=== PATIENT | female | born 1935 | race Caucasian/White ===

== ENCOUNTER 2017-02-16 08:15 | Emergency (ER) | payer MEDICARE ==
[~2017-02-16 08:15] MED LIST: ALEN70TA3 PO; AMLO10TA2 PO; ASCO100020 PO; ASPI325T8 PO; CALC-112 PO; CARV6.25 PO; CYAN1TAB2 PO; DORZ10DR21 EACHEYE; DORZ10DR21 OP; FLAX1CAP PO; FLUT16SP2 NS; FLUT1DIS3 IH; FLUT50DI IH; FOLI0.4T2 PO; ISOS60TA PO; LUTE40CA PO; METH-37 PO; MILK500C PO; OMEG1CAP16 PO; SULF1TAB24 PO; TAFL1DRO OP; TRAM50TA PO; VITA150T PO
[2017-02-16 08:25] VITALS: BP 94/50
--- NOTE | 2017-02-16 08:43 | EKG ---
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
[2017-02-16 08:47] LABS: BASO % 1 % (0-3); EOS # 0.1 x10^3/uL (0.0-0.7); EOS % 3 % (0-3); HEMATOCRIT 37.3 % (36.0-47.0); HEMOGLOBIN 12.6 g/dL (12.0-15.5); LYMPH # 1.4 x10^3/uL (1.0-4.8); LYMPH % 27 % (24-48); MEAN CORPUSCULAR HEMOGLOBIN 28 pg (25-35); MEAN CORPUSCULAR HGB CONC 34 g/dL (31-37); MEAN CORPUSCULAR VOLUME 84 fL (79-100); MONO # 0.7 x10^3/uL (0.0-1.1); MONO % 14 % (0-9); NEUT # 2.9 x10^3uL (1.8-7.7); NEUT % 56 % (31-73); PLATELET COUNT 243 x10^3/uL (140-400); RED BLOOD COUNT 4.45 x10^6/uL (3.50-5.40); RED CELL DISTRIBUTION WIDTH 14.2 % (11.5-14.5); WHITE BLOOD COUNT 5.2 x10^3/uL (4.0-11.0)
[2017-02-16 08:56] LABS: CALCIUM 9.2 mg/dL (8.5-10.1); CREATININE 0.6 mg/dL (0.6-1.0); GFR 95.5; POTASSIUM 4.4 mmol/L (3.5-5.1)
[2017-02-16] MEDS ORDERED: IV NORMAL SALINE 1,000ML 1,000 ML IV SCH (09:00)
[2017-02-16 09:35] LABS: BILIRUBIN,URINE NEG (NEG); CLARITY,URINE HAZY; COLOR,URINE YELLOW; GLUCOSE,URINE NEG (NEG); NITRITE,URINE NEG (NEG); UROBILINOGEN,URINE 0.2 mg/dL (0.2 mg/dL)
[2017-02-16 09:36] LABS: AMORPHOUS SEDIMENT,UR PRESENT /HPF; BACTERIA,URINE 0 /HPF (0-FEW); RBC,URINE RARE /HPF (0-2); SQUAMOUS EPITHELIAL CELL,UR OCC /LPF; WBC,URINE RARE /HPF (0-4)
--- NOTE | 2017-02-16 09:43 | PHYS DOC ---
Past History Past Medical History: COPD, Hypertension, Other Past Surgical History: Appendectomy, Hysterectomy Smoking: Cigarettes, Quit Greater Than 1 Year Alcohol Use: None Drug Use: None Adult General Chief Complaint Chief Complaint: DIZZY/LIGHT HEADED HPI HPI Patient is a 82 year old F who presents with dizziness. Over the past 2 days Serena has noticed worsening dizziness with no exacerbating or alleviating factors. She describes the dizziness occasionally has vertigo, room spinning. She also feels that she has had worsening nasal congestion with postnasal drip over the past 5 days. 3 days ago she did have several episodes of loose stools. She also has been working in the heat over the past few days doing yard work at her house. She has no other associated symptoms. She is breathing well and has no abdominal pain stooling normally at this time urinating normally. She has had no changes in medications and is taking all of her current medications as directed. Review of Systems Review of Systems Constitutional: Denies fever or chills [] Eyes: Denies change in visual acuity, redness, or eye pain [] HENT: Negative except history of present illness Respiratory: Denies cough or shortness of breath [] Cardiovascular: No additional information not addressed in HPI [] GI: Negative except history of present illness : Denies dysuria or hematuria [] Musculoskeletal: Denies back pain or joint pain [] Integument: Denies rash or skin lesions [] Neurologic: Denies headache, focal weakness or sensory changes [] Endocrine: Denies polyuria or polydipsia [] Family History Family History Noncontributory Current Medications Current Medications Current Medications Medications (Trade) Dose Ordered Sig/Carolann Start Time Stop Time Status Last Admin Dose Admin Sodium Chloride 1,000 ml @ 1,000 mls/hr Q1H 02/16/17 09:00 02/16/17 09:59 02/16/17 09:10 1,000 MLS/HR Allergies Allergies Coded Allergies Type Severity Reaction Last Updated Verified ciprofloxacin Allergy Intermediate Unknown 08/05/15 Yes hydrochlorothiazide Allergy Intermediate Unknown 08/05/15 Yes lisinopril Allergy Intermediate Unknown 08/05/15 Yes olmesartan Allergy Intermediate 08/05/15 Yes spironolactone Allergy Intermediate Unknown 12/24/13 Yes Physical Exam Physical Exam Constitutional: Well developed, well nourished, no acute distress, non-toxic appearance. [] HENT: Normocephalic, atraumatic, bilateral external ears normal, no oral exudates, bilateral nasal erythema with mild swelling. Dry mucous membranes Eyes: PERRLA, EOMI, conjunctiva normal, no discharge. [] Neck: Normal range of motion, no tenderness, supple, no stridor. [] Cardiovascular:Heart rate regular rhythm, Lungs & Thorax: Bilateral breath sounds clear to auscultation [] Abdomen: Bowel sounds normal, soft, no tenderness, no masses, no pulsatile masses. [] Skin: Warm, dry, no erythema, no rash. [] Back: No tenderness, no CVA tenderness. [] Extremities: No tenderness, no cyanosis, no clubbing, ROM intact, no edema. [] Neurologic: Alert and oriented X 3, normal motor function, normal sensory function, no focal deficits noted. [] Psychologic: Affect normal, judgement normal, mood normal. [] Current Patient Data Vital Signs Vital Signs Date Time Temp Pulse Resp B/P (MAP) Pulse Ox O2 Delivery O2 Flow Rate FiO2 02/16/17 08:25 98.3 69 16 95 Room Air Lab Results Laboratory Tests Test 02/16/17 08:35 White Blood Count 5.2 x10^3/uL (4.0-11.0) Red Blood Count 4.45 x10^6/uL (3.50-5.40) Hemoglobin 12.6 g/dL (12.0-15.5) Hematocrit 37.3 % (36.0-47.0) Mean Corpuscular Volume 84 fL (79-100) Mean Corpuscular Hemoglobin 28 pg (25-35) Mean Corpuscular Hemoglobin Concent 34 g/dL (31-37) Red Cell Distribution Width 14.2 % (11.5-14.5) Platelet Count 243 x10^3/uL (140-400) Neutrophils (%) (Auto) 56 % (31-73) Lymphocytes (%) (Auto) 27 % (24-48) Monocytes (%) (Auto) 14 % (0-9) H Eosinophils (%) (Auto) 3 % (0-3) Basophils (%) (Auto) 1 % (0-3) Neutrophils # (Auto) 2.9 x10^3uL (1.8-7.7) Lymphocytes # (Auto) 1.4 x10^3/uL (1.0-4.8) Monocytes # (Auto) 0.7 x10^3/uL (0.0-1.1) Eosinophils # (Auto) 0.1 x10^3/uL (0.0-0.7) Basophils # (Auto) 0.0 x10^3/uL (0.0-0.2) Sodium Level 128 mmol/L (136-145) L Potassium Level 4.4 mmol/L (3.5-5.1) Chloride Level 94 mmol/L (98-107) L Carbon Dioxide Level 27 mmol/L (21-32) Anion Gap 7 (6-14) Blood Urea Nitrogen 14 mg/dL (7-20) Creatinine 0.6 mg/dL (0.6-1.0) Estimated GFR (Cockcroft-Gault) 95.5 Glucose Level 99 mg/dL (70-99) Calcium Level 9.2 mg/dL (8.5-10.1) EKG EKG Interpreted by emergency department physician Rhythm: NS Rate: 60 Ectopy: none Clinical Impression: [EKG CLINICAL IMPRESSION:][] Course & Med Decision Making Course & Med Decision Making Pertinent Labs and Imaging studies reviewed. (See chart for details) Admission was recommended for hyponatremia however patient wished to be managed at home. The cause of hyponatremia was presumptively hypovolemic hyponatremia 2 recent diarrhea and working outside in the heat. However her urine specific gravity does not show dehydration. This was discussed with the patient as well as the uncertainty of her volume status. It was explained that monitoring in the hospital would allow for dynamic treatment of her hyponatremia. Shifts and sodium may result in permanent brain damage. Serena's daughter was present during her evaluation Dragon Disclaimer Dragon Disclaimer This chart was dictated in whole or in part using Voice Recognition software in a busy, high-work load, and often noisy Emergency Department environment. It may contain unintended and wholly unrecognized errors or omissions. Departure Departure: Impression: Primary Impression: Dehydration Additional Impressions: Hyponatremia Upper respiratory infection, viral Disposition: 01 HOME, SELF-CARE Condition: GUARDED Referrals: KEVEN MALONE MD (PCP) Patient Instructions: Hyponatremia, Upper Respiratory Infection, Adult Additional Instructions: Serena was seen in the ED for not feeling well. No emergency medical condition was found during the history and physical exam. Her symptoms were consistent with an upper respiratory infection. She advised to use her nasal steroids and to start using nasal saline rinses. She was also found to have low sodium likely secondary to dehydration for which she was given 1 L of IV fluids. She was strongly advised to return to the ED if she develops new or worsening symptoms. She was advised to follow up with her primary care doctor in the next 3-5days for further evaluation Problem Qualifiers ADAL MONTIEL MD Feb 16, 2017 09:43
== END 2017-02-16 10:27 | disposition home or self-care (01) ==
LOC: ER 08:15
DX: E86.0 Dehydration (principal); E87.1 Hypo-osmolality and hyponatremia; J06.9 Acute upper respiratory infection, unspecified; I10 Essential (primary) hypertension; J44.9 Chronic obstructive pulmonary disease, unspecified; F17.210 Nicotine dependence, cigarettes, uncomplicated; Z88.1 Allergy status to other antibiotic agents; Z88.8 Allergy status to other drugs, medicaments and biological substances
CPT/HCPCS: 36415; 80048; 81001; 85027; 93005; 96360; 99285-25; J7030

== ENCOUNTER → 2017-03-21 | Outpatient (CLI) | payer OTHER ==
--- NOTE | 2017-03-21 11:30 | CARD ---
APPROVED REPORT EXAM: Two-dimensional and M-mode echocardiogram with Doppler and color Doppler. Other Information Quality : GoodHR: 64bpm Rhythm : NSR INDICATION Dizziness and Vertigo Hypertension/HCVD 2D DIMENSIONS RVDd3.0 (2.9-3.5cm)Left Atrium(2D)3.4 (1.6-4.0cm) IVSd0.8 (0.7-1.1cm)Aortic Root(2D)2.7 (2.0-3.7cm) LVDd4.6 (3.9-5.9cm)LVOT Diameter2.1 (1.8-2.4cm) PWd0.8 (0.7-1.1cm)LVDs3.0 (2.5-4.0cm) FS (%) 35.2 %SV62.9 ml LVEF(%)64.6 (>50%) Aortic Valve AoV Peak Goldy.167.8cm/sAoV VTI39.8cm AO Peak GR.11.3mmHgLVOT Peak Goldy.85.1cm/s LVOT VTI 20.57cmAO Mean GR.6mmHg TOBI (VMAX)1.37kz0SJD (VTI)1.80cm2 AI P 1/2 Tozg901xd Mitral Valve MV E Vxynujpg948.5cm/sMV E Peak Gr.3mmHg MV DECEL AOVM262sgCV A Nawrfglh66.6cm/s MV E Mean Gr.1mmHgE/A Ratio2.1 MV A Qwpljvgj934gx Pulmonary Valve PV Peak Uevtyggs509.3cm/sPV Peak Grad.4mmHg Tricuspid Valve TR P. Fcbdqdcz884yg/sTR Peak Gr.33mmHg Pulmonary Vein S1 Wczkucux01.2cm/sD2 Ecowxyrj41.5cm/s LEFT VENTRICLE The left ventricle is normal size. There is normal left ventricular wall thickness. The left ventricu lar systolic function is normal. The Ejection Fraction is 60-65%. There is normal LV segmental wall m otion. Transmitral Doppler flow pattern is Grade III-reversible restrictive diastolic dysfunction. RIGHT VENTRICLE The right ventricle is normal size. There is normal right ventricular wall thickness. The right ventr icular systolic function is normal. ATRIA The left atrium is moderately dilated. The right atrium is moderately dilated. The atrial septum is a neurysmal without Doppler evidence for an atrial septal defect. AORTIC VALVE The aortic valve is mildly sclerotic. The aortic valve is trileaflet. Doppler and Color Flow revealed mild aortic regurgitation. There is no significant aortic valvular stenosis. MITRAL VALVE The mitral valve leaflets are mildly calcified. There is no evidence of mitral valve prolapse. There is no mitral valve stenosis. Doppler and Color Flow revealed mild mitral regurgitation. TRICUSPID VALVE Doppler and Color Flow revealed mild tricuspid regurgitation. The pulmonary artery systolic pressure is estimated at 36 mmHg. There is mild pulmonary hypertension. PULMONIC VALVE The pulmonic valve is not well visualized but appears to open adequately. Doppler and Color Flow reve aled mild pulmonic valvular regurgitation. There is no pulmonic valvular stenosis by spectral Doppler . GREAT VESSELS The aortic root is normal in size. The ascending aorta is normal in size. The pulmonary artery is nor mal. The IVC is normal in size and collapses >50% with inspiration. PERICARDIAL EFFUSION There is no evidence of significant pericardial effusion. Critical Notification Critical Value: No <Conclusion> The left ventricular systolic function is normal. The Ejection Fraction is 60-65%. Mild aortic regurgitation. Mild mitral regurgitation. Mild tricuspid regurgitation. The pulmonary artery systolic pressure is estimated at 36 mmHg. There is mild pulmonary hypertension. There is no evidence of significant pericardial effusion.
--- NOTE | 2017-03-21 12:08 | RAD ---
CT head without IV contrast Indication: Dizziness Technique: CT head without IV contrast Comparison: Previous CT head from 04/20/2015. Findings: No pathologic extra-axial or intra-axial fluid collection. Mild diffuse cerebral and cerebral atrophy with axillary brachial dilation of the ventricles. No acute intracranial bleed. The basal cisterns are within normal limits. The paranasal sinuses and mastoid air cells are clear. No suspicious calvarial lesion. Bilateral cavernous carotid artery calcifications. Impression: 1. No acute intracranial bleed. 2. Diffuse cerebral atrophy likely age-related. If concern for acute ischemic stroke is high, please consider MRI brain which is a more sensitive modality. PQRS Compliance Statement: One or more of the following individualized dose reduction techniques were utilized for this examination: 1. Automated exposure control 2. Adjustment of the mA and/or kV according to patient size 3. Use of iterative reconstruction technique MTDD
== END | disposition home or self-care (01) ==
LOC: ECHO 09:23
PROVIDERS: ATTEND Family Medicine
DX: I10 Essential (primary) hypertension (principal); G31.9 Degenerative disease of nervous system, unspecified
CPT/HCPCS: 70450; 93306

== ENCOUNTER 2017-05-01 20:23 | Emergency (ER) | payer OTHER ==
[~2017-05-01] VITALS: Ht 160 cm; Wt 52.2 kg
[2017-05-01 20:37] VITALS: BP 157/66
--- NOTE | 2017-05-01 20:37 | PHYS DOC ---
Past History Past Medical History: COPD, Hypertension, Other Past Surgical History: Appendectomy, Hysterectomy Smoking: Cigarettes, Quit Greater Than 1 Year Alcohol Use: None Drug Use: None Adult General Chief Complaint Chief Complaint: right toe pain HPI HPI Patient is a 82 year old female who presents with she states that there is a crack at the base of her toenail on right. She denies any falls, any other injuries. She states she is up-to-date on her tetanus shot. Review of Systems Review of Systems Constitutional: Denies fever or chills [] Eyes: Denies change in visual acuity, redness, or eye pain [] HENT: Denies nasal congestion or sore throat [] Respiratory: Denies cough or shortness of breath [] Cardiovascular: No additional information not addressed in HPI [] GI: Denies abdominal pain, nausea, vomiting, bloody stools or diarrhea [] : Denies dysuria or hematuria [] Musculoskeletal: Denies back pain or joint pain [] Integument: Denies rash or skin lesions [] Neurologic: Denies headache, focal weakness or sensory changes [] Endocrine: Denies polyuria or polydipsia [] Allergies Allergies Allergies Coded Allergies Type Severity Reaction Last Updated Verified ciprofloxacin Allergy Intermediate Unknown 08/05/15 Yes hydrochlorothiazide Allergy Intermediate Unknown 08/05/15 Yes lisinopril Allergy Intermediate Unknown 08/05/15 Yes olmesartan Allergy Intermediate 08/05/15 Yes spironolactone Allergy Intermediate Unknown 12/24/13 Yes Physical Exam Physical Exam Constitutional: Well developed, well nourished, no acute distress, non-toxic appearance. [] HENT: Normocephalic, atraumatic, bilateral external ears normal, oropharynx moist, no oral exudates, nose normal. [] Eyes: PERRLA, EOMI, conjunctiva normal, no discharge. [] Neck: Normal range of motion, no tenderness, supple, no stridor. [] Cardiovascular:Heart rate regular rhythm, no murmur [] Lungs & Thorax: Bilateral breath sounds clear to auscultation [] Abdomen: Bowel sounds normal, soft, no tenderness, no masses, no pulsatile masses. [] Skin: Warm, dry, no erythema, no rash. [] Back: No tenderness, no CVA tenderness. [] Extremities: Tender to the patient with ecchymosis at the PIP joint of the right great toe, no obvious deformity noted, no cyanosis, no clubbing, ROM intact, no edema. [] Neurologic: Alert and oriented X 3, normal motor function, normal sensory function, no focal deficits noted. [] Psychologic: Affect normal, judgement normal, mood normal. [] EKG EKG [] Radiology/Procedures Radiology/Procedures 3 views of the right toe shows slightly displaced proximal distal great toe fracture, no foreign bodies or other abnormalities noted, as interpreted by me. Impressions: Right great toe fracture Course & Med Decision Making Course & Med Decision Making Pertinent Labs and Imaging studies reviewed. (See chart for details) Patient was given [place] for pain in her toes were danita taped together. She is to follow-up with Mina. Return precautions given. Her and her daughters agreeable to plan. She's being discharged with hard sole shoe and crutches. She is to weight-bear as tolerated. Dragon Disclaimer Dragon Disclaimer This chart was dictated in whole or in part using Voice Recognition software in a busy, high-work load, and often noisy Emergency Department environment. It may contain unintended and wholly unrecognized errors or omissions. Departure Departure: Impression: Primary Impression: Toe fracture Disposition: 01 HOME, SELF-CARE Condition: STABLE Referrals: KEVEN MALONE MD (PCP) Patient Instructions: Danita Taping of Toes Additional Instructions: Your broke your big toe on your right foot. We danita taped your big toe to the other toe. You will need to wear your hard soled shoe and follow-up with Dr. Enriquez. You can take [place], which is a narcotic pain medicine as needed for pain. Be careful with this as it can make you constipated and impair your judgment. Please don't drive your car or drink alcohol while taking this medicine. You can use MiraLAX, which you can purchase [id number] for a stool softener to help prevent constipation from your narcotic pain medicine called [place]. Return ER for severe pain or other concerns. Scripts Hydrocodone Bit/Acetaminophen (NORCO 5-325 TABLET) 1 Each Tablet 1 TAB PO PRN Q6HRS Y for PAIN, #20 TAB 0 Refills Prov: MERRY SEO MD 05/01/17 Problem Qualifiers Primary Impression: Toe fracture Encounter type: initial encounter Toe: great toe Fracture type: closed Phalanx: distal Fracture alignment: nondisplaced Laterality: right Qualified Codes: S92.424A - Nondisplaced fracture of distal phalanx of right great toe, initial encounter for closed fracture MERRY SEO MD May 01, 2017 20:37
[2017-05-01] MEDS ORDERED: HYDROcodone/APAP 5/325MG 1 TAB TABLET PO ONE (22:00)
[2017-05-01] MEDS ORDERED: HYDR-971 PO (22:10)
--- NOTE | 2017-05-02 08:37 | RAD ---
Toe x-rays Indication:, To the first digit. Severe pain. Swelling and redness. Technique: 3 views of the first toe Comparison: None Findings: Avulsion fracture of the medial aspect of the base of the distal phalanx of the great toe noted with extension to the articular surface at the interphalangeal joint. Linear calcification along the lateral aspect of the head of the first metatarsal may represent enthesophyte or avulsion fracture. Impression: As above.
== END 2017-05-01 22:24 | disposition home or self-care (01) ==
LOC: ER 20:23
DX: S92.424A Nondisplaced fracture of distal phalanx of right great toe, initial encounter for closed fracture (principal); J44.9 Chronic obstructive pulmonary disease, unspecified; I10 Essential (primary) hypertension; F17.210 Nicotine dependence, cigarettes, uncomplicated; Z88.1 Allergy status to other antibiotic agents; Z88.8 Allergy status to other drugs, medicaments and biological substances; X58.XXXA Exposure to other specified factors, initial encounter; Y93.89 Activity, other specified; Y99.8 Other external cause status; Y92.89 Other specified places as the place of occurrence of the external cause
CPT/HCPCS: 73660; 99284

== ENCOUNTER → 2018-05-08 | Outpatient (CLI) | payer OTHER ==
[~2018-05-08] MED LIST changes: -AMLO10TA2 PO; +AMLO10TA6 PO; +HYDR-971 PO
--- NOTE | 2018-05-08 15:47 | RAD ---
Exam : Carotid Duplex with Grayscale Ultrasound and Spectral and Color Doppler Analysis 05/08/2018 3:42 PM Clinical Indications: No dizziness. Comparison study: None available. PQRS Compliance Statement - Stenosis calculations for CT, MR and conventional angiography are based upon measurement of the distal ICA diameter in accordance with the NASCET methodology. Stenosis calculations for carotid ultrasound studies are derived from validated velocity criteria which are known to correlate with the NASCET methodology. Findings: The common, internal and external carotid arteries were examined by grayscale, color and spectral Doppler ultrasound. Minimal changes of atherosclerotic vascular disease are seen without high-grade visual stenosis on color Doppler imaging. Vertebral flow is antegrade bilaterally. The following are the velocities and ratios in the carotid arteries on both sides: RIGHT ICA PV: 70cm/sec RIGHT CCA PV: 62cm/sec RIGHT ICA ED: 14cm/sec RIGHT IC/CCPV: Less than 2 RIGHT VERTEBRAL: antegrade flow LEFT ICA PV: 82cm/sec LEFT CCA PV: 72cm/sec LEFT ICA ED: 15cm/sec LEFT IC/CCPV: Less than 2 LEFT VERTEBRAL: antegrade flow <50% ICA Stenosis: PSV < 125cm/s (EDV < 40cm/s; SVR < 2.0) 50-69% ICA Stenosis: PSV < 125-229cm/s (EDV 40-99cm/s; SVR 2.0-3.9) >70% ICA Stenosis: PSV > 230cm/s (EDV >100cm/s; SVR >4.0) Impression: Minimal changes of atherosclerotic vascular disease with less than 50 percent stenosis of bilateral internal carotid arteries by ultrasound criterion Electronically signed by: Joaquín Preston MD (05/08/2018 3:45 PM) [id number]
== END | disposition home or self-care (01) ==
LOC: US 12:11
PROVIDERS: ATTEND Family Medicine
DX: I65.23 Occlusion and stenosis of bilateral carotid arteries (principal)
CPT/HCPCS: 93880

== ENCOUNTER 2018-09-17 11:54 | Emergency (ER) | payer OTHER ==
[~2018-09-17] VITALS: Ht 157.5 cm; Wt 52.6 kg
[~2018-09-17 11:54] MED LIST changes: -AMLO10TA6 PO; +AMLO10TA8 PO; +HYDR-3165 PO; -HYDR-971 PO
[2018-09-17 12:15] VITALS: BP 155/79
[2018-09-17] MEDS ORDERED: OXYMETAZOLINE 0.05% NASAL SPRAY 15ML BOTTLE. NS ONE (12:30)
--- NOTE | 2018-09-17 12:46 | PHYS DOC ---
Past History Past Medical History: No Pertinent History Past Surgical History: No Surgical History Smoking: Cigarettes, Quit Greater Than 1 Year Alcohol Use: None Drug Use: None Adult General Chief Complaint Chief Complaint: NOSEBLEED HPI HPI Patient is a 83 year old female who presents with complaining of nose bleeding. Patient complaining of intermittent episodes of nosebleeds for the last 12 days that stopped spontaneously. Patient states this morning she blew her nose and started to have bleeding from the left nares that stopped at arrival to ER. Patient denies ecchymosis on other bleeding, taking brought in her medication, dizziness and shortness of breath, fever and chills. Patient complaining of nasal congestion for the last several days. Review of Systems Review of Systems Constitutional: Denies fever or chills [] Eyes: Denies change in visual acuity, redness, or eye pain [] HENT: Denies nasal congestion or sore throat [] Respiratory: Denies cough or shortness of breath [] Cardiovascular: No additional information not addressed in HPI [] GI: Denies abdominal pain, nausea, vomiting, bloody stools or diarrhea [] : Denies dysuria or hematuria [] Musculoskeletal: Denies back pain or joint pain [] Integument: Denies rash or skin lesions [] Neurologic: Denies headache, focal weakness or sensory changes [] Endocrine: Denies polyuria or polydipsia [] All other systems were reviewed and found to be within normal limits, except as documented in this note. Current Medications Current Medications Current Medications Medications (Trade) Dose Ordered Sig/Carolann Start Time Stop Time Status Last Admin Dose Admin Oxymetazoline HCl (Afrin) 2 spray 1X ONCE 09/17/18 12:30 09/17/18 12:32 DC 09/17/18 12:31 2 SPRAY Allergies Allergies Allergies Coded Allergies Type Severity Reaction Last Updated Verified ciprofloxacin Allergy Intermediate Unknown 08/05/15 Yes hydrochlorothiazide Allergy Intermediate Unknown 08/05/15 Yes lisinopril Allergy Intermediate Unknown 08/05/15 Yes olmesartan Allergy Intermediate 08/05/15 Yes spironolactone Allergy Intermediate Unknown 12/24/13 Yes Physical Exam Physical Exam Constitutional: Well developed, well nourished, no acute distress, non-toxic appearance. [] HENT: Normocephalic, atraumatic, bilateral external ears normal, oropharynx moist, no oral exudates, dried blood in left naris without active bleeding edema and erythema of bilateral nasal mucosa] Eyes: PERRLA, EOMI, conjunctiva normal, no discharge. [] Neck: Normal range of motion, no tenderness, supple, no stridor. [] Cardiovascular:Heart rate regular rhythm, no murmur [] Lungs & Thorax: Bilateral breath sounds clear to auscultation [] Skin: Warm, dry, no erythema, no rash. [] Back: No tenderness, no CVA tenderness. [] Extremities: No tenderness, no cyanosis, no clubbing, ROM intact, no edema. [] Neurologic: Alert and oriented X 3, normal motor function, normal sensory function, no focal deficits noted. [] Psychologic: Affect normal, judgement normal, mood normal. [] Current Patient Data Vital Signs Vital Signs Date Time Temp Pulse Resp B/P (MAP) Pulse Ox O2 Delivery O2 Flow Rate FiO2 09/17/18 12:15 98.3 65 16 99 Room Air EKG EKG [] Radiology/Procedures Radiology/Procedures [] Course & Med Decision Making Course & Med Decision Making Evaluation of patient in ER showed 83-year-old male patient with episodes of nasal bleeding for several days. Patient was advised to avoid of blow her nose and apply focal pressure during episodes of epistaxis and use Afrin and normal saline spray. Patient instructed for with ENT if continues to have epistaxis. Dragon Disclaimer Dragon Disclaimer This electronic medical record was generated, in whole or in part, using a voice recognition dictation system. Departure Departure: Impression: Primary Impression: Epistaxis Disposition: HOME, SELF-CARE (at 1244) Condition: STABLE Referrals: KEVEN MALONE MD (PCP) Patient Instructions: Nose Drops, Saline, [id number], Nosebleed Additional Instructions: Follow-up with ENT on-call in 3-5 days Apply Afrin nasal spray every 6 hours for 3 days Use normal saline nose drops several times a day Avoid of blowing your nose Return to emergency room if not getting better AVA ABAD MD Sep 17, 2018 12:46
== END 2018-09-17 12:51 | disposition home or self-care (01) ==
LOC: ER 11:54
DX: R04.0 Epistaxis (principal); F17.210 Nicotine dependence, cigarettes, uncomplicated; Z88.1 Allergy status to other antibiotic agents; Z88.8 Allergy status to other drugs, medicaments and biological substances
CPT/HCPCS: 99282

== ENCOUNTER → 2018-12-18 | Outpatient (CLI) | payer OTHER ==
[~2018-12-18] MED LIST changes: +IOHEXOL 240 MG/ML 50ML VIAL. ONE
[2018-12-18] MEDS: IOHEXOL 300 MG/ML 75 ML VIAL. IV ONE (13:56)
[2018-12-18] MEDS: IOHEXOL 240 MG/ML 50ML VIAL. PO ONE (13:56)
--- NOTE | 2018-12-18 15:30 | RAD ---
CT ABD PELV W/ORAL IV CONTRAST Indication: Generalized abdominal pain for 3 months, weight loss Technique: Postcontrast CT imaging was performed of the abdomen pelvis, multiplanar reconstruction images submitted. Oral contrast was also given. One or more of the following individualized dose reduction techniques were utilized for this examination: 1. Automated exposure control 2. Adjustment of the mA and/or kV according to patient size 3. Use of iterative reconstruction technique. Comparison: August 05, 2015 Findings: There are several noncalcified nodules of the visualized lung bases at least in part present previously although difficult to accurately compare, the visualized nodules fairly similar in size. There is no pleural fluid. No focal abnormality is identified of the liver, pancreas, spleen. Both kidneys enhance, no hydronephrosis. There is gallstone. There is atherosclerotic calcification abdominal aorta, stenoses near origins of the celiac and superior mesenteric arteries likely significant although difficult to accurately quantify on this exam. There is hypodense lesion of superior left kidney about 1 cm in size, density measurements more suggestive of cyst about 19-20 Hounsfield units, size fairly similar. Bowel is not considered significantly dilated. There is sigmoid diverticulosis, difficult to exclude component of mild long segment sigmoid wall thickening. Sigmoid colon is not opacified with oral contrast during exam. There is circumferential prominence of urinary bladder bustos. There is suspected moderate to severe stenosis of the right common iliac artery origin. There is lumbar levoscoliosis. There is again severe L1 compression deformity with significant osseous retropulsion contributing to moderate to severe spinal stenosis with right greater than left lateral recess stenosis. There is also severe narrowing of the right L1-2 neural foramen. There is multilevel facet degenerative change. There is likely mild spinal stenosis at L2-3, degree of left lateral recess stenosis at L3-4 also the far lateral recesses bilaterally at L4-5. There is likely moderate narrowing of the left L4-5 neural foramen. IMPRESSION: 1. Somewhat difficult to accurately quantify, there are suspected stenoses near the celiac and superior mesenteric artery origins, also suspected moderate to severe stenosis near the right common iliac artery origin. 2. There is nonspecific circumferential prominence of urinary bladder bustos, could be seen with cystitis in the appropriate clinical setting, mass not excludable by imaging. 3. There is sigmoid diverticulosis, difficult to exclude mild pathologic wall thickening although findings may be due to incomplete distention. 4. There is cholelithiasis. 5. There are again some noncalcified pulmonary nodules at the visualized lung bases for which dedicated chest CT is recommended for complete evaluation visualized nodules fairly similar compared with 2016 exam. 6. There is again severe L1 compression deformity with significant osseous retropulsion contributing to spinal stenosis and narrowing of the right L1-2 neural foramen. Electronically signed by: Vasu Martin MD (12/18/2018 3:27 PM) [id number]
== END | disposition home or self-care (01) ==
LOC: CT 12:44
PROVIDERS: ATTEND Family Medicine
DX: K57.30 Diverticulosis of large intestine without perforation or abscess without bleeding (principal); K80.20 Calculus of gallbladder without cholecystitis without obstruction; R91.8 Other nonspecific abnormal finding of lung field; I70.0 Atherosclerosis of aorta; N28.89 Other specified disorders of kidney and ureter; M48.061 Spinal stenosis, lumbar region without neurogenic claudication; M43.8X6 Other specified deforming dorsopathies, lumbar region
CPT/HCPCS: 74177; Q9966; Q9967

== ENCOUNTER → 2019-01-01 | Outpatient (CLI) | payer OTHER ==
[~2019-01-01] MED LIST changes: -IOHEXOL 240 MG/ML 50ML VIAL. ONE
--- NOTE | 2019-01-01 15:37 | RAD ---
Examination: CT chest without contrast HISTORY: History of abnormal right loss COMPARISON: 07/19/2011 TECHNIQUE: Axial CT images of the chest were performed without contrast. Coronal and sagittal reformats are performed Exposure: One or more of the following individualized dose reduction techniques were utilized for this examination: 1. Automated exposure control 2. Adjustment of the mA and/or kV according to patient size 3. Use of iterative reconstruction technique FINDINGS: Central airways are patent. The ascending aorta measures 3.5 cm in transverse dimension. Mild cardiomegaly. Coronary artery calcifications identified. Severe aortic atherosclerosis. Multiple scattered noncalcified nodules identified in the bilateral lungs with the largest measuring 7 mm in the right upper lobe, 8 mm in the left lower lobe of the lung are stable since 2010. Faint tree-in-bud opacities identified in the periphery of the bilateral lungs again identified could be chronic infectious etiology. No evidence of pleural effusion or pneumothorax. The visualized noncontrasted liver, spleen, adrenals grossly appears unremarkable. Severe compression change of L1 vertebral body similar to prior exam. Moderate degenerative changes thoracic spine. IMPRESSION: Multiple scattered noncalcified pulmonary nodules in the bilateral lungs similar to prior exam. Electronically signed by: Rm Ordonez MD (01/01/2019 3:34 PM) [place] [id number]
== END | disposition home or self-care (01) ==
LOC: CT 12:50
PROVIDERS: ATTEND Family Medicine
DX: M47.814 Spondylosis without myelopathy or radiculopathy, thoracic region (principal); I25.10 Atherosclerotic heart disease of native coronary artery without angina pectoris; I70.0 Atherosclerosis of aorta; I11.9 Hypertensive heart disease without heart failure; R91.8 Other nonspecific abnormal finding of lung field
CPT/HCPCS: 71250

== ENCOUNTER → 2019-05-22 | Outpatient (CLI) | payer OTHER ==
--- NOTE | 2019-05-22 12:53 | RAD ---
EXAM: Dual energy x-ray absorptiometry (DEXA). HISTORY: Post menopausal screening. TECHNIQUE: Dual energy x-ray absorptiometry of the lumbar spine and the right hip was performed. T-score of average bone mineral density based was calculated based on standard deviations above or below the expected young adult normal value. Diagnostic definitions were established by the World Health Organization. FINDINGS: The average bone mineral density associated with L1-L4 is 0.912 g/cm^2, corresponding with a T-score of -2.2. The lowest measured T score is -3.1 at L4. Bone mineral density is somewhat artificially elevated by degenerative sclerosis. The average total bone mineral density associated with the right hip is 0.443 g/cm^2, corresponding with a T-score of -4.2. In comparison with the prior study of 01/08/2013, average bone mineral density at the lumbar spine has changed +6.8%, while the average density at the hips has changed -17.9%. Refer to the worksheets for full detail. IMPRESSION: 1. Osteoporosis. Average bone mineral density yields a T-score of -2.5 or less. Fracture risk is high. Electronically signed by: Jonatan Clement MD (05/22/2019 12:50 PM) [facility]
== END | disposition home or self-care (01) ==
LOC: DXRAD 11:22
PROVIDERS: ATTEND Family Medicine
DX: M81.8 Other osteoporosis without current pathological fracture (principal); M81.0 Age-related osteoporosis without current pathological fracture; Z78.0 Asymptomatic menopausal state
CPT/HCPCS: 77080

== ENCOUNTER → 2020-03-26 | Outpatient (CLI) | payer MEDICARE ==
--- NOTE | 2020-03-26 16:32 | RAD ---
Exam: Chest 2 views. Thoracic spine 2 views INDICATION: Back and chest pain TECHNIQUE: Frontal and lateral views the chest. Frontal and lateral views of the thoracic spine Comparisons: CT chest 01/01/2019 FINDINGS: The cardiomediastinal silhouette and pulmonary vessels are within normal limits. The lung and pleural spaces are clear. Thoracic spine: Mild compression deformities in the midthoracic spine which appears new when compared to the study on 01/21/2019. There is a mild S shaped scoliotic curvature of thoracolumbar spine. Mild degenerative disc disease is noted throughout the thoracic spine. IMPRESSION: 1. No acute cardiopulmonary process. 2. Mild compression deformities in the midthoracic spine which appear progressed when compared to the study on 01/01/2019. Electronically signed by: Eduardo Rodrigues MD (03/26/2020 4:29 PM) [id number]
== END | disposition home or self-care (01) ==
LOC: DXRAD 15:59
PROVIDERS: ATTEND Family Medicine
DX: M51.34 Other intervertebral disc degeneration, thoracic region (principal); M43.8X4 Other specified deforming dorsopathies, thoracic region; M41.85 Other forms of scoliosis, thoracolumbar region; R05 Cough
CPT/HCPCS: 71046; 72072

== ENCOUNTER → 2021-04-09 | Outpatient (CLI) | payer MEDICARE ==
[~2021-04-09] MED LIST changes: +AMLO-187 PO; -AMLO10TA8 PO; -FOLI0.4T2 PO; +FOLI0.4T5 PO
--- NOTE | 2021-04-09 14:13 | RAD ---
CT HEAD INDICATION: Reason: HEADACHE / Spl. Instructions: / History: COMPARISON: None Available. Exposure: One or more of the following individualized dose reduction techniques were utilized for thi s examination: 1. Automated exposure control 2. Adjustment of the mA and/or kV according to patient size 3. Use of iterative reconstruction technique TECHNIQUE: 5 mm contiguous axial images were obtained from the skull base to the vertex in both bone and soft tissue algorithm. FINDINGS: No abnormal attenuation within the brain parenchyma. No evidence of acute intracranial hemorrhage. No extra-axial fluid collections. No mass effect or midline shift. Ventricular size is appropriate. Basal cisterns are patent. No fractures identified.Philippe-white differentiation is preserved.Globes and orbits are within normal l imits. Paranasal sinuses and mastoid air cells are clear. IMPRESSION: No acute intracranial findings. Electronically signed by: Rm Ordonez MD (04/09/2021 2:10 PM) [id number]
== END ==
LOC: CT 12:51
PROVIDERS: ATTEND Physician Assistant
DX: R51.9 Headache, unspecified (principal)
CPT/HCPCS: 70450

== ENCOUNTER 2021-04-11 15:38 | Emergency (ER) | payer MEDICARE ==
[~2021-04-11] VITALS: Ht 152.4 cm; Wt 44.1 kg
[2021-04-11 16:00] VITALS: BP 143/78
[2021-04-11 16:24] LABS: BASO % 1 % (0-3); EOS # 0.1 x10^3/uL (0.0-0.7); EOS % 1 % (0-3); HEMATOCRIT 40.8 % (36.0-47.0); HEMOGLOBIN 13.6 g/dL (12.0-15.5); LYMPH # 1.3 x10^3/uL (1.0-4.8); LYMPH % 21 % (24-48); MEAN CORPUSCULAR HEMOGLOBIN 29 pg (25-35); MEAN CORPUSCULAR HGB CONC 33 g/dL (31-37); MEAN CORPUSCULAR VOLUME 88 fL (79-100); MONO # 0.7 x10^3/uL (0.0-1.1); MONO % 11 % (0-9); NEUT # 4.3 x10^3uL (1.8-7.7); NEUT % 67 % (31-73); PLATELET COUNT 224 x10^3/uL (140-400); RED BLOOD COUNT 4.62 x10^6/uL (3.50-5.40); RED CELL DISTRIBUTION WIDTH 14.7 % (11.5-14.5); WHITE BLOOD COUNT 6.4 x10^3/uL (4.0-11.0)
[2021-04-11 16:27] LABS: BACTERIA,URINE FEW /HPF (0-FEW); BILIRUBIN,URINE NEG (NEG); CLARITY,URINE CLEAR; COLOR,URINE YELLOW; GLUCOSE,URINE NEG (NEG); NITRITE,URINE NEG (NEG); UROBILINOGEN,URINE 0.2 mg/dL (0.2 mg/dL); WBC,URINE 0 /HPF (0-4)
[2021-04-11 16:32] LABS: CALCIUM 9.6 mg/dL (8.5-10.1); CREATININE 0.6 mg/dL (0.6-1.0); GFR 94.6; POTASSIUM 4.3 mmol/L (3.5-5.1)
[2021-04-11 16:34] LABS: BARBITURATES NEG (NEG); BENZODIAZEPINES NEG (NEG); CANNABINOIDS NEG (NEG); COCAINE NEG (NEG); METHADONE NEG (NEG); OPIATES NEG (NEG); PHENCYCLIDINE NEG (NEG)
--- NOTE | 2021-04-11 16:36 | RAD ---
CT Head W/O Contrast: History: Reason: aphasia, rue weakness / Spl. Instructions: Not a stroke protocol Comparison: April 09, 2021 Axial images were obtained without contrast. There is moderate diffuse atrophy. There is no mass effect, extraaxial fluid collections or hydrocep halus. There is no gross bleed. Mild, patchy periventricular and subcortical white matter hypoatten uation is seen. There is no focal loss of finley-white matter distinction to suggest acute ischemia, i .e. stroke. Impression: No acute findings. End impression PQRS Compliance Statement: One or more of the following individualized dose reduction techniques were utilized for this examinat ion: 1. Automated exposure control 2. Adjustment of the mA and/or kV according to patient size 3. Use of iterative reconstruction technique Electronically signed by: Nura Hook III, MD (04/11/2021 4:34 PM) [id number]
[2021-04-11 16:39] LABS: AMPHETAMINE/METHAMPHETAMINE NEG (NEG)
[2021-04-11 16:45] LABS: ALBUMIN 3.9 g/dL (3.4-5.0); ALBUMIN/GLOBULIN RATIO 1.3 (1.0-1.7); MAGNESIUM 2.2 mg/dL (1.8-2.4); TOTAL BILIRUBIN 0.7 mg/dL (0.2-1.0); TOTAL PROTEIN 6.8 g/dL (6.4-8.2)
--- NOTE | 2021-04-11 16:54 | RAD ---
XR CHEST 1V CLINICAL INDICATIONS: Reason: weakness COMPARISON: None available. Findings: Hyperinflation is seen consistent with COPD. No acute lung infiltrate or pleural effusion o r pulmonary edema or lung mass or pneumothorax is seen. The heart size, pulmonary vasculature, media stinum and both eyad are unremarkable. There is a compression fracture of a lower thoracic vertebral body. IMPRESSION: No acute lung infiltrates. COPD. Compression fracture of a lower thoracic vertebral body of indeterminate age. This may be T10. A comp ression fracture of the upper lumbar spine was seen on previous a thoracic spine study dated March 012019. T10 compression fracture was not seen at that time. Electronically signed by: Ward Melendez MD (04/11/2021 4:52 PM) [id number]
--- NOTE | 2021-04-11 17:10 | PHYS DOC ---
Past History Past Medical History: No Pertinent History Past Surgical History: No Surgical History Smoking: Cigarettes, Quit Greater Than 1 Year Alcohol Use: None Drug Use: None General Adult EDM: Chief Complaint: ALTERED MENTAL STATUS HPI: HPI: 86 yo F with medical history of migraine headaches, atrial fibrillation on Eliquis, hypertension hyperlipidemia, presents to the ED with daughter at bedside, (patient consents to his/her/their knowledge and involvement in pts' medical care), complaints of numbness and weakness stating that she dropped a toothbrush a creatinine dysarthria lasted for less than 30 minutes, is currently asymptomatic. Patient states the same time she had some difficulties getting her words out and called her daughter. Daughter reports patient had incomprehensible speech and seemed very confused, encouraged her to lie down on the couch. Patient had a CT of the head on with primary care physician Dr. Eldon Love for similar symptoms. Patient recently discontinued Norvasc due to lower extremity swelling and doubled her carvedilol. Per RN, pt with stable VSs and glucose within normal range. Review of Systems: Review of Systems: Constitutional: Denies fever or chills Eyes: Denies change in visual acuity HENT: Denies nasal congestion or sore throat Respiratory: Denies cough or shortness of breath Cardiovascular: Denies chest pain or edema GI: Denies abdominal pain, nausea, vomiting, bloody stools or diarrhea : Denies dysuria or hematuria Musculoskeletal: Denies back pain or joint pain Integument: Denies rash diaphoresis Neurologic: Denies neck stiffness or rigidity Endocrine: Denies polyuria or polydipsia Lymphatic: Denies swollen glands Psychiatric: Denies depression or anxiety Allergies: Allergies: Allergies Coded Allergies Type Severity Reaction Last Updated Verified ciprofloxacin Allergy Intermediate Unknown 08/05/15 Yes hydrochlorothiazide Allergy Intermediate Unknown 08/05/15 Yes lisinopril Allergy Intermediate Unknown 08/05/15 Yes olmesartan Allergy Intermediate 08/05/15 Yes spironolactone Allergy Intermediate Unknown 12/24/13 Yes hydralazine Allergy Unknown 12/18/18 Yes Physical Exam: PE: Constitutional: Well developed, well nourished, no acute distress, non-toxic appearance. HENT: Normocephalic, atraumatic, Eyes: EOMI, conjunctiva normal, no discharge. Neck: Normal range of motion, supple, Cardiovascular: S1/2 present, regular rhythm Lungs & Thorax: Speaking in full sentences, bilateral equal chest rise, no tachypnea or increased work of breathing Abdomen: soft, no tenderness, Skin: Warm, dry, no erythema, no rash. [] Back: No tenderness, no CVA tenderness. [] Extremities: No tenderness, no cyanosis, no lower extremity edema Neurologic: NIHSS0, CN2-12 intact, Alert and oriented X 3, normal motor functio n, normal sensory function, no focal deficits noted, steady gait Psychologic: Affect normal, judgement normal, mood normal. [] Current Patient Data: Labs: Laboratory Tests Test 04/11/21 15:47 04/11/21 16:00 04/11/21 16:04 Glucose (Fingerstick) 109 mg/dL (70-99) H White Blood Count 6.4 x10^3/uL (4.0-11.0) Red Blood Count 4.62 x10^6/uL (3.50-5.40) Hemoglobin 13.6 g/dL (12.0-15.5) Hematocrit 40.8 % (36.0-47.0) Mean Corpuscular Volume 88 fL (79-100) Mean Corpuscular Hemoglobin 29 pg (25-35) Mean Corpuscular Hemoglobin Concent 33 g/dL (31-37) Red Cell Distribution Width 14.7 % (11.5-14.5) H Platelet Count 224 x10^3/uL (140-400) Neutrophils (%) (Auto) 67 % (31-73) Lymphocytes (%) (Auto) 21 % (24-48) L Monocytes (%) (Auto) 11 % (0-9) H Eosinophils (%) (Auto) 1 % (0-3) Basophils (%) (Auto) 1 % (0-3) Neutrophils # (Auto) 4.3 x10^3uL (1.8-7.7) Lymphocytes # (Auto) 1.3 x10^3/uL (1.0-4.8) Monocytes # (Auto) 0.7 x10^3/uL (0.0-1.1) Eosinophils # (Auto) 0.1 x10^3/uL (0.0-0.7) Basophils # (Auto) 0.0 x10^3/uL (0.0-0.2) Sodium Level 135 mmol/L (136-145) L Potassium Level 4.3 mmol/L (3.5-5.1) Chloride Level 98 mmol/L (98-107) Carbon Dioxide Level 32 mmol/L (21-32) Anion Gap 5 (6-14) L Blood Urea Nitrogen 17 mg/dL (7-20) Creatinine 0.6 mg/dL (0.6-1.0) Estimated GFR (Cockcroft-Gault) 94.6 BUN/Creatinine Ratio 28 (6-20) H Glucose Level 106 mg/dL (70-99) H Calcium Level 9.6 mg/dL (8.5-10.1) Magnesium Level 2.2 mg/dL (1.8-2.4) Total Bilirubin 0.7 mg/dL (0.2-1.0) Aspartate Amino Transferase (AST) 35 U/L (15-37) Alanine Aminotransferase (ALT) 43 U/L (14-59) Alkaline Phosphatase 76 U/L (46-116) Creatine Kinase 40 U/L (26-192) Troponin I Quantitative < 0.017 ng/mL (0-0.055) ZD-Ssf-U-Type Natriuretic Peptide 4163 pg/mL (0-449) H Total Protein 6.8 g/dL (6.4-8.2) Albumin 3.9 g/dL (3.4-5.0) Albumin/Globulin Ratio 1.3 (1.0-1.7) Urine Collection Type Unknown Urine Color Yellow Urine Clarity Clear Urine pH 7.0 Urine Specific Casar 1.015 Urine Protein Neg (NEG-TRACE) Urine Glucose (UA) Neg mg/dL (NEG) Urine Ketones (Stick) Neg mg/dL (NEG) Urine Blood Trace (NEG) Urine Nitrite Neg (NEG) Urine Bilirubin Neg (NEG) Urine Urobilinogen Dipstick 0.2 mg/dL (0.2 mg/dL) Urine Leukocyte Esterase Neg (NEG) Urine RBC 1-2 /HPF (0-2) Urine WBC 0 /HPF (0-4) Urine Squamous Epithelial Cells None /LPF Urine Bacteria Few /HPF (0-FEW) Urine Opiates Screen Neg (NEG) Urine Methadone Screen Neg (NEG) Urine Barbiturates Neg (NEG) Urine Phencyclidine Screen Neg (NEG) Urine Amphetamine/Methamphetamine Neg (NEG) Urine Benzodiazepines Screen Neg (NEG) Urine Cocaine Screen Neg (NEG) Urine Cannabinoids Screen Neg (NEG) Urine Ethyl Alcohol Neg (NEG) EKG: EKG: [] Radiology/Procedures: Radiology/Procedures: []IMAGING REPORT Signed PATIENT: TABBY COOPERACCOUNT: [id number] : 1935 LOCATION: ER AGE: 86 SEX: F EXAM STATUS: REG ER ORD. PHYSICIAN: IZABELA ALLEN DO REASON: weakness PROCEDURE: PORTABLE CHEST 1V XR CHEST 1V CLINICAL INDICATIONS: Reason: weakness COMPARISON: None available. Findings: Hyperinflation is seen consistent with COPD. No acute lung infiltrate or pleural effusion or pulmonary edema or lung mass or pneumothorax is seen. The heart size, pulmonary vasculature, mediastinum and both eyad are unremarkable. There is a compression fracture of a lower thoracic vertebral body. IMPRESSION: No acute lung infiltrates. COPD. Compression fracture of a lower thoracic vertebral body of indeterminate age. This may be T10. A compression fracture of the upper lumbar spine was seen on previous a thoracic spine study dated March 26, 2020. T10 compression fracture was not seen at that time. Electronically signed by: Babak Melendez MD (04/11/2021 4:52 PM) [id number] DICTATED AND SIGNED BY: BABAK MELENDEZ MD DATE: 04/11/21 1647 CC: KEVEN MALONE MD; IZABELA ALLEN DO ~MTH0 0 IMAGING REPORT Signed PATIENT: TABBY COOPERACCOUNT: [id number] : 1935 LOCATION: ER AGE: 86 SEX: F EXAM STATUS: REG ER ORD. PHYSICIAN: IZABELA ALLEN DO REASON: aphasia, rue weakness PROCEDURE: CT HEAD WO CONTRAST CT Head W/O Contrast: History: Reason: aphasia, rue weakness / Spl. Instructions: Not a stroke protocol Comparison: April 09, 2021 Axial images were obtained without contrast. There is moderate diffuse atrophy. There is no mass effect, extraaxial fluid collections or hydrocephalus. There is no gross bleed. Mild, patchy per iventricular and subcortical white matter hypoattenuation is seen. There is no focal loss of finley-white matter distinction to suggest acute ischemia, i.e. stroke. Impression: No acute findings. End impression PQRS Compliance Statement: One or more of the following individualized dose reduction techniques were utilized for this examination: 1. Automated exposure control 2. Adjustment of the mA and/or kV according to patient size 3. Use of iterative reconstruction technique Electronically signed by: Avinash Caceres III, MD (04/11/2021 4:34 PM) [id number] DICTATED AND SIGNED BY: AVINASH CACERES III, MD DATE: 04/11/21 6516 CC: KEVEN MALONE MD; [facility]ENTER[facility]ABELA Sally DO ~MTH0 0 Heart Score: C/O Chest Pain: No Risk Factors: Risk Factors: DM, Current or recent (<one month) smoker, HTN, HLP, family h istory of CAD, obesity. Risk Scores: Score 0 - 3: 2.5% MACE over next 6 weeks - Discharge Home Score 4 - 6: 20.3% MACE over next 6 weeks - Admit for Clinical Observation Score 7 - 10: 72.7% MACE over next 6 weeks - Early Invasive Strategies Course & Med Decision Making: Course & Med Decision Making Pertinent Labs and Imaging studies reviewed. (See chart for details) Concern for TIA vs delirium. I re-evaluated patient multiple times with conflicting history between myself, rn and daughter. Reports +/-associated headache. States she was aware of her sxs then stated she has no recall of prior events. Pt lives alone. No UTI on U/A, no pneumonia on chest x-ray. Labs wnl. No ischemia on CT. Pt seems to be very forgetful. I suspect patient's symptoms are related to acute delirium vs possible early dementia. Despite this I offered admission/transfer to [facility] for MRI. Sxs have been intermittent for the past week. Pt and daughter elect to followup as an outpt. Will discharge home with strict ED return precautions were given for aphasia, facial droop, neurologic deficits or syncope. Encouraged urgent outpatient follow-up with PMD and neurology. Life-threatening processes were considered but are low suspicion at this time, given history, physical exam and ED workup. Pt was educated on all prescription medications and adverse effects. All patient's questions were answered and pt was stable at time of discharge. Life/limb-threatening differential includes but is not limited to, cerebrovascular accident, cerebellar stroke, acute coronary syndrome, carbon monoxide poisoning or other toxidrome, syncope differential including cardiac arrhythmia/PE/aortic aneurysm or dissection/ACS, Guillan Yale syndrome, thyroid disease, infection, central and peripheral vertigo, intracranial hemorrhage, vertebrobasilar insufficiency, heat stroke, electrolyte disorder, rheumatologic or autoimmune disorder I have spoken with the patient and/or caregivers. I explained the patient's co ndition, diagnoses and treatment plan based on the information available to me at this time. I have answered the patient and/or caregiver's questions and addressed any concerns. The patient and/or caregivers have a good understanding of patient's diagnosis, condition and treatment plan as can be expected at this point. Vital signs have been stable. Patient's condition is stable and appropriate for discharge from the emergency department. Patient will pursue further outpatient evaluation with primary care physician or other designated or consulting physician as outlined in the discharge instructions. The patient and/or caregivers are agreeable to this plan of care and follow-up instructions have been explained in detail. The patient and/or caregivers have received these instructions in written form and have expressed an understanding of the discharge instructions. The patient and/or caregivers are aware that any significant change of condition or worsening of symptoms should prompt immediate return to this or the closest emergency department or call to 911. Smith Disclaimer: Smith Disclaimer: This electronic medical record was generated, in whole or in part, using a voice recognition dictation system. Departure Departure: Impression: Primary Impression: Acute confusion Disposition: 01 HOME / SELF CARE / HOMELESS Condition: STABLE Referrals: KEVEN MALONE MD (PCP) Follow up with your pcp in 1-2 days or [facility] [phone] OR [facility]-Dr. Goyal [phone] Patient Instructions: Confusion, Delirium, Ischemic Stroke Additional Instructions: FOLLOW UP WITH NEUROLOGY: For evaluation of delirium and stroke risk factor reduction Todd Roy MD [address] [place] [address], [address] [place] [address] OR [address] [place] [address] EMERGENCY DEPARTMENT GENERAL DISCHARGE INSTRUCTIONS Thank you for coming to [facility] (ED) today and trusting us with you care. We trust that you had a positivie experience in our Emergency Department. If you wish to speak to the department management, you may call the director at [phone]. YOUR FOLLOW UP INSTRUCTIONS ARE FOLLOWS: 1. Do you have a private Doctor? If you do not have a private doctor, please ask for a resource list of physicians or clinics that may be able to assist you with follow up care. 2. The Emergency Physician has interpreted your x-rays. The X-Ray specialist will also review them. If there is a change in the findings, you will be notified in 48 hours when at all possible. 3. A lab test or culture has been done, your results will be reviewed and you will be notified if you need a change in treatment. ADDITIONAL INSTRUCTIONS AND INFORMATION: 1. Your care today has been supervised by a physician who is specially trained in emergency care. Many problems require more than one evaluation for a complete diagnosis and treatment. We recommend that you schedule your follow up appointment as recommended to ensure complete treatment of you illness or injury. If you are unable to obtain follow up care and continue to have a problem, or if your condition worsens, we recommend that you return to the ED. 2. We are not able to safely determine your condition over the phone nor are we able to give sound medical advice over the phone. For these safety reasons, if you call for medical advice we will ask you to come to the ED for further evaluation. 3. If you have any questions regarding these discharge instructions please call the ED at [phone]. SAFETY INFORMATION: In the interest of safety, wellness, and injury prevention; we encourage you to wear your sealbelt, if you smoke; quite smoking, and we encourage family to use a protective helmet for bicycling and other sporting events that present an increased risk for head injury. IF YOUR SYMPTOMS WORSEN OR NEW SYMPTOMS DEVELOP, OR YOU HAVE CONCERNS ABOUT YOUR CONDITION; OR IF YOUR CONDITION WORSENS WHILE YOU ARE WAITING FOR YOUR FOLLOW UP APPOINTMENT; EITHER CONTACT YOUR PRIMARY CARE DOCTOR, THE PHYSICIAN WHOSE NAME AND NUMBER YOU WERE GIVEN, OR RETURN TO THE ED IMMEDIATELY. IZABELA ALLEN DO Apr 11, 2021 17:10
--- NOTE | 2021-04-11 21:56 | EKG ---
[facility] ED 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
== END 2021-04-11 18:18 | disposition home or self-care (01) ==
LOC: ER 16:33
DX: R41.0 Disorientation, unspecified (principal); R20.0 Anesthesia of skin; R53.1 Weakness; R47.1 Dysarthria and anarthria; G43.909 Migraine, unspecified, not intractable, without status migrainosus; I48.91 Unspecified atrial fibrillation; I10 Essential (primary) hypertension; E78.5 Hyperlipidemia, unspecified; Z79.01 Long term (current) use of anticoagulants; Z87.891 Personal history of nicotine dependence; Z88.1 Allergy status to other antibiotic agents; Z88.8 Allergy status to other drugs, medicaments and biological substances
CPT/HCPCS: 36415; 70450; 71045; 80053; 80307; 81001; 82550; 82947; 83735; 83880; 84484; 85025; 93005; 99285-25

== ENCOUNTER 2021-11-19 15:36 | Emergency (ER) | payer MEDICARE ==
[~2021-11-19] VITALS: Ht 152.4 cm; Wt 44.1 kg
[2021-11-19] MEDS ORDERED: IV NORMAL SALINE 1,000ML 1,000 ML IV ONE (16:15)
[2021-11-19] MEDS ORDERED: IOHEXOL 300 MG/ML 75 ML VIAL. IV ONE (16:15)
--- NOTE | 2021-11-19 16:15 | PHYS DOC ---
Past History Past Medical History: No Pertinent History (NKECHI PAYNE DO) Past Surgical History: No Surgical History (NKECHI PAYNE DO) Smoking: Cigarettes, Quit Greater Than 1 Year Alcohol Use: None Drug Use: None (NKECHI PAYNE DO) General Adult EDM: Chief Complaint: ABDOMINAL PAIN HPI: HPI: 86-year-old female presents with abdominal pain. She has had pain for the last 1 week. It is gotten more intense yesterday and today. She rates it a 4-6 out of 10. It is a cramping pain of the upper abdomen that radiates through to her lower back. She denies any falls or trauma. She states that she is urinating and defecating without difficulty. She denies fever or chills. (NKECHI PAYNE DO) Review of Systems: Review of Systems: Constitutional: Denies fever or chills Eyes: Denies change in visual acuity HENT: Denies nasal congestion or sore throat Respiratory: Denies cough or shortness of breath Cardiovascular: Denies chest pain or edema GI: Upper abdominal pain. Denies nausea, vomiting, bloody stools or diarrhea : Denies dysuria Musculoskeletal: Low back pain Integument: Denies rash Neurologic: Denies headache, focal weakness or sensory changes Endocrine: Denies polyuria or polydipsia Lymphatic: Denies swollen glands Psychiatric: Denies depression or anxiety (NKECHI PAYNE DO) Allergies: Allergies: Allergies Coded Allergies Type Severity Reaction Last Updated Verified ciprofloxacin Allergy Intermediate Unknown 08/05/15 Yes hydrochlorothiazide Allergy Intermediate Unknown 08/05/15 Yes lisinopril Allergy Intermediate Unknown 08/05/15 Yes olmesartan Allergy Intermediate 08/05/15 Yes spironolactone Allergy Intermediate Unknown 12/24/13 Yes hydralazine Allergy Unknown 12/18/18 Yes (NKECHI PAYNE DO) Physical Exam: PE: Constitutional: Well developed, well nourished, no acute distress, non-toxic appearance. [] HENT: Normocephalic, atraumatic, bilateral external ears normal, oropharynx dry, no oral exudates, nose normal. [] Eyes: PERRLA, EOMI, conjunctiva normal, no discharge. [] Neck: Normal range of motion, no tenderness, supple, no stridor. [] Cardiovascular: Heart rate, regular rhythm, no murmur [] Lungs & Thorax: Bilateral breath sounds clear to auscultation [] Abdomen: Bowel sounds normal, soft, generalized abdominal tenderness, no masses, no pulsatile masses. [] Skin: Warm, dry, no erythema, no rash. [] Back: No tenderness, no CVA tenderness. [] Extremities: No tenderness, no cyanosis, no clubbing, ROM intact, no edema. [] Neurologic: Alert and oriented X 3, normal motor function, normal sensory function, no focal deficits noted. [] Psychologic: Affect normal, judgement normal, mood normal. [] (NKECHI PAYNE DO) EKG: EKG: [] (NKECHI PAYNE DO) Radiology/Procedures: Radiology/Procedures: [] (NKECHI PAYNE DO) Radiology/Procedures: : 1935 LOCATION: ER AGE: 86 SEX: F EXAM STATUS: REG ER ORD. PHYSICIAN: NKECHI PAYNE DO REASON: upper abdominal pain, OMNI 300, 75ml PROCEDURE: CT ABD PELV W/ IV CONTRST ONLY INDICATION: Reason: upper abdominal pain, OMNI 300, 75ml / Spl. Instructions: / History: COMPARISON: November 2018 TECHNIQUE: Axial CT images were obtained through the abdomen and pelvis with intravenous contrast. One or more of the following individualized dose reduction techniques were utilized for this examination: 1. Automated exposure control; 2. Adjustment of the mA and/or kV according to patient size; 3. Use of iterative reconstruction technique. FINDINGS: Nodules are seen at the partially visualized lung bases. The patient has a history of pulmonary nodules which were better evaluated on prior chest CT. Hyperexpanded lungs at the bases. Vascular: Calcific atherosclerosis. Atria are enlarged. There is again some suspected narrowing within the vessels including proximal superior mesenteric and celiac artery. Hepatobiliary: Liver is enlarged. There is some gallstones. Low-density at portal triad region again seen. There is also some heterogeneity of the liver but this could be from phase of contrast as well. Pancreas: No peripancreatic edema. Spleen: Heterogenous enhancement. Limits evaluation. Renal/Bladder: There are some bilateral low-density renal lesions measuring up to about 14 mm. Some appear cystic and others are not well characterized given its small size. Prominence of the bilateral extrarenal pelvis again seen. Urinary bladder is partially distended. Gastrointestinal: Small amount of free fluid in the pelvis. There is also some mesenteric edema. There is a couple of prominent loops of small bowel identified measuring up to approximately 25 mm within the pelvis. Colonic diverticulosis. There is some prominence of the wall of a portion of the colon on the left with some haziness of the fat. There is some tortuosity to the mesentery within the pelvis. Scoliotic curvature of the spine with degenerative changes with multilevel central canal and neural foraminal stenosis. osseous demineralization. Intramedullary frieda right proximal femur. Severe degenerative changes left hip. IMPRESSION: * There is some mesenteric edema and free fluid seen. A couple possible causes for this finding would include diverticulitis given that there is mild prominence of the colon as it courses through this region with another possible cause including enteritis since there are some small bowel loops within the vicinity as well. There is some tortuosity to the mesentery within the region. * Severe atherosclerotic disease. * Repeat demonstration of multiple nodules of the lung bases which was better evaluated on prior chest CT. * Gallstones. * Heterogeneity of the liver which could be from phase of contrast with other causes such as hepatitis not excluded. * Severe degenerative changes of the spine with scoliotic curvature and multilevel central canal stenosis. There is also a severe fracture of the L1 vertebral body with retropulsion and central canal stenosis at this level again seen. Mild superior endplate compression deformity of T12 vertebral body which appears slightly increased from prior. Would correlate with symptoms Electronically signed by: Katrina Dennis MD (11/19/2021 6:36 PM) [id number] DICTATED AND SIGNED BY: KATRINA DENNIS MD DATE: 11/19/211818 CC: KEVEN MENDOZA MD; NKECHI PAYNE DO; CHARLES HANNA MD ~ [address] [address] IMAGING REPORT Signed PATIENT: TABBY COOPERACCOUNT: [id number] : 1935 LOCATION: ER AGE: 86 SEX: F EXAM STATUS: REG ER ORD. PHYSICIAN: NKECHI PAYNE DO REASON: SOB PROCEDURE: CHEST AP ONLY XR CHEST 1V History: Reason: SOB / Spl. Instructions: / History: Comparison: April 11, 2021 Findings: Hyperinflation. Mild diffuse reticular interstitial thickening. No pleural effusion. No pneumothorax. Unchanged heart size. Impression: 1. Hyperinflation with diffuse reticular interstitial thickening, may represent chronic interstitial changes. Electronically signed by: Tan Andrew DO (11/19/2021 4:37 PM) [facility] DICTATED AND SIGNED BY: TAN ANDREW DO DATE: 11/19/21 163 CC: KEVEN MENDOZA MD; NKECHI PAYNE DO ~ (CHARLES HANNA MD) Heart Score: C/O Chest Pain: No Risk Factors: Risk Factors: DM, Current or recent (<one month) smoker, HTN, HLP, family history of CAD, obesity. Risk Scores: Score 0 - 3: 2.5% MACE over next 6 weeks - Discharge Home Score 4 - 6: 20.3% MACE over next 6 weeks - Admit for Clinical Observation Score 7 - 10: 72.7% MACE over next 6 weeks - Early Invasive Strategies (NKECHI PAYNE DO) C/O Chest Pain: N/A (CHARLES HANNA MD) Course & Med Decision Making: Course & Med Decision Making Pertinent Labs and Imaging studies reviewed. (See chart for details) The patient's labs are unremarkable. Her urinalysis is negative for infection. CT of the abdomen pelvis is pending. I am signing patient out to my colleague Dr. Hanna at 1800. [] (NKECHI PAYNE DO) Course & Med Decision Making See Dr. Payne chart for details prior shift change. Discussed options of treatment with patient and family. Have elected [facility] Dr. Guerra has accepted in transfer for pain management, antibiotics and possible interventional radiology assessment for vertebroplasty and possible neurosurgery consult.. Pt. follows with Dr. Mendoza. Will treat with antibioitc Rocphen and Flagyl the diverticulitis/ enteritis. Small increments of morphine for back and abdomen pain.. Impression: 1. Abdomen pain 2. Diverticulitis 3. Enteritis 4. Compression fractures T12 and L1 5. Spinal stenosis 6. Gallstones (CHARLES HANNA MD) Dragon Disclaimer: Dragon Disclaimer: This electronic medical record was generated, in whole or in part, using a voice recognition dictation system. (NKECHI PAYNE DO) Departure Departure: Impression: Primary Impression: Abdominal pain Referrals: KEVEN MENDOZA MD (PCP) [place] Disclaimer This chart was dictated in whole or in part using Voice Recognition software in a busy, high-work load, and often noisy Emergency Department environment. It may contain unintended and wholly unrecognized errors or omissions. (CHARLES HANNA MD) Dragon Disclaimer This chart was dictated in whole or in part using Voice Recognition software in a busy, high-work load, and often noisy Emergency Department environment. It may contain unintended and wholly unrecognized errors or omissions. (CHARLES HANNA MD) NKECHI PAYNE DO Nov 19, 2021 16:15 CHARLES HANNA MD Nov 19, 2021 18:29
--- NOTE | 2021-11-19 16:39 | RAD ---
XR CHEST 1V History: Reason: SOB / Spl. Instructions: / History: Comparison: April 11, 2021 Findings: Hyperinflation. Mild diffuse reticular interstitial thickening. No pleural effusion. No pneumothorax. Unchanged heart size. Impression: 1. Hyperinflation with diffuse reticular interstitial thickening, may represent chronic interstitial changes. Electronically signed by: Tan Andrew DO (11/19/2021 4:37 PM) [facility]
[2021-11-19 16:55] LABS: CALCIUM 9.7 mg/dL (8.5-10.1); CREATININE 0.5 mg/dL (0.6-1.0); GFR 116.7; POTASSIUM 4.3 mmol/L (3.5-5.1)
[2021-11-19 17:01] LABS: ALBUMIN 3.4 g/dL (3.4-5.0); TOTAL BILIRUBIN 1.1 mg/dL (0.2-1.0); TOTAL PROTEIN 6.9 g/dL (6.4-8.2)
[2021-11-19 17:06] LABS: CLARITY,URINE CLEAR; COLOR,URINE YELLOW; GLUCOSE,URINE NEG (NEG); NITRITE,URINE NEG (NEG); UROBILINOGEN,URINE 0.2 mg/dL (0.2 mg/dL)
[2021-11-19 17:07] LABS: BACTERIA,URINE 0 /HPF (0-FEW); SQUAMOUS EPITHELIAL CELL,UR FEW /LPF; WBC,URINE 0 /HPF (0-4)
[2021-11-19 17:28] LABS: BASO % 0 % (0-3); EOS % 0 % (0-3); HEMATOCRIT 42.3 % (36.0-47.0); HEMOGLOBIN 14.1 g/dL (12.0-15.5); LYMPH # 1.2 x10^3/uL (1.0-4.8); LYMPH % 12 % (24-48); MEAN CORPUSCULAR HEMOGLOBIN 30 pg (25-35); MEAN CORPUSCULAR HGB CONC 33 g/dL (31-37); MEAN CORPUSCULAR VOLUME 90 fL (79-100); MONO % 10 % (0-9); NEUT # 7.5 x10^3uL (1.8-7.7); NEUT % 77 % (31-73); PLATELET COUNT 245 x10^3/uL (140-400); WHITE BLOOD COUNT 9.7 x10^3/uL (4.0-11.0)
--- NOTE | 2021-11-19 18:38 | RAD ---
INDICATION: Reason: upper abdominal pain, OMNI 300, 75ml / Spl. Instructions: / History: COMPARISON: November 2018 TECHNIQUE: Axial CT images were obtained through the abdomen and pelvis with intravenous contrast. One or more of the following individualized dose reduction techniques were utilized for this examinat ion: 1. Automated exposure control; 2. Adjustment of the mA and/or kV according to patient size; 3 . Use of iterative reconstruction technique. FINDINGS: Nodules are seen at the partially visualized lung bases. The patient has a history of pulmonary nodul es which were better evaluated on prior chest CT. Hyperexpanded lungs at the bases. Vascular: Calcific atherosclerosis. Atria are enlarged. There is again some suspected narrowing withi n the vessels including proximal superior mesenteric and celiac artery. Hepatobiliary: Liver is enlarged. There is some gallstones. Low-density at portal triad region again seen. There is also some heterogeneity of the liver but this could be from phase of contrast as well. Pancreas: No peripancreatic edema. Spleen: Heterogenous enhancement. Limits evaluation. Renal/Bladder: There are some bilateral low-density renal lesions measuring up to about 14 mm. Some a ppear cystic and others are not well characterized given its small size. Prominence of the bilateral extrarenal pelvis again seen. Urinary bladder is partially distended. Gastrointestinal: Small amount of free fluid in the pelvis. There is also some mesenteric edema. Ther e is a couple of prominent loops of small bowel identified measuring up to approximately 25 mm within the pelvis. Colonic diverticulosis. There is some prominence of the wall of a portion of the colon on the left wi th some haziness of the fat. There is some tortuosity to the mesentery within the pelvis. Scoliotic curvature of the spine with degenerative changes with multilevel central canal and neural f oraminal stenosis. osseous demineralization. Intramedullary frieda right proximal femur. Severe degenera tive changes left hip. IMPRESSION: * There is some mesenteric edema and free fluid seen. A couple possible causes for this finding wou ld include diverticulitis given that there is mild prominence of the colon as it courses through this region with another possible cause including enteritis since there are some small bowel loops within the vicinity as well. There is some tortuosity to the mesentery within the region. * Severe atherosclerotic disease. * Repeat demonstration of multiple nodules of the lung bases which was better evaluated on prior caryn st CT. * Gallstones. * Heterogeneity of the liver which could be from phase of contrast with other causes such as hepatit is not excluded. * Severe degenerative changes of the spine with scoliotic curvature and multilevel central canal marisol nosis. There is also a severe fracture of the L1 vertebral body with retropulsion and central canal s tenosis at this level again seen. Mild superior endplate compression deformity of T12 vertebral body which appears slightly increased from prior. Would correlate with symptoms Electronically signed by: Nimesh De Los Santos MD (11/19/2021 6:36 PM) [id number]
[2021-11-19] MEDS ORDERED: MORPHINE SULFATE 4 MG/ML DISP.SYRIN. SQ ONE (20:00)
[2021-11-19] MEDS ORDERED: metroNIDAZOLE 500 MG TABLET PO ONE (20:00)
[2021-11-19] MEDS ORDERED: MORPHINE SULFATE 2 MG/ML DISP.SYRIN. IV/SQ ONE (20:00)
[2021-11-19] MEDS ORDERED: IV NORMAL SALINE 50ML 50 ML ONE (20:19)
[2021-11-19] MEDS ORDERED: cefTRIAXone SODIUM 1 GM VIAL ONE (20:20)
[2021-11-19] MEDS ORDERED: ONDANSETRON PF 4 MG/2 ML VIAL. IVP ONE (20:30)
[2021-11-19 20:44] LABS: INFLUENZA A PATIENT NEGATIVE (NEGATIVE); INFLUENZA B PATIENT NEGATIVE (NEGATIVE)
[2021-11-19] MEDS ORDERED: CARV12.5 PO (21:13)
[2021-11-19 21:15] VITALS: BP 133/63
[2021-11-19] MEDS ORDERED: AMLO2.5T5 PO (21:17)
[2021-11-19] MEDS ORDERED: ASPI81TA59 PO (21:17)
[2021-11-19] MEDS ORDERED: LUTE1CAP5 PO (21:17)
[2021-11-19] MEDS ORDERED: MULT-735 PO (21:17)
[2021-11-19] MEDS ORDERED: TAFL1DRO OP (21:17)
[2021-11-19 21:22] LABS: INFLUENZA A PATIENT NEGATIVE (NEGATIVE); INFLUENZA B PATIENT NEGATIVE (NEGATIVE)
== END 2021-11-19 21:42 | disposition short-term general hospital (02) ==
LOC: ER 15:36
DX: S22.080A Wedge compression fracture of T11-T12 vertebra, initial encounter for closed fracture (principal); S32.010A Wedge compression fracture of first lumbar vertebra, initial encounter for closed fracture; K57.92 Diverticulitis of intestine, part unspecified, without perforation or abscess without bleeding; K52.9 Noninfective gastroenteritis and colitis, unspecified; M48.00 Spinal stenosis, site unspecified; K80.20 Calculus of gallbladder without cholecystitis without obstruction; Z20.822 Contact with and (suspected) exposure to COVID-19; Z87.891 Personal history of nicotine dependence; Z88.1 Allergy status to other antibiotic agents; Z88.8 Allergy status to other drugs, medicaments and biological substances; X58.XXXA Exposure to other specified factors, initial encounter; Y93.89 Activity, other specified; Y92.89 Other specified places as the place of occurrence of the external cause; Y99.8 Other external cause status
CPT/HCPCS: 36415; 71045; 74177; 80053; 81001; 85025; 87428; 96360; 96361; 96365; 96375; 99285; C9803; J0696; J2270; J2405; J7030; Q9967; U0003